=== PATIENT | male | born 1985 | race Caucasian/White ===

== ENCOUNTER 2019-09-16 13:45 | Emergency (ER) | payer MEDICAID ==
[~2019-09-16] VITALS: Ht 190.5 cm; Wt 75.0 kg
[2019-09-16] MEDS ORDERED: ALBU8HFA PO (14:54)
[2019-09-16] MEDS ORDERED: IBUP-1984 PO (14:54)
[2019-09-16 15:13] VITALS: BP 128/84
== END 2019-09-16 15:20 | disposition home or self-care (01) ==
LOC: ER 13:45
DX: R07.81 Pleurodynia (principal); R11.2 Nausea with vomiting, unspecified; F11.20 Opioid dependence, uncomplicated; F17.200 Nicotine dependence, unspecified, uncomplicated; Z60.2 Problems related to living alone; Z72.89 Other problems related to lifestyle; Z79.899 Other long term (current) drug therapy
CPT/HCPCS: 71045; 99284

== ENCOUNTER 2019-09-28 16:10 | Emergency (ER) | payer MEDICAID ==
[~2019-09-28] VITALS: Ht 190.5 cm; Wt 75.0 kg
[~2019-09-28 16:10] MED LIST: ALBU8HFA PO
[2019-09-28 17:14] LABS: BASOPHILS # (AUTO) 0.1 X10'3 (0-0.2); BASOPHILS % (AUTO) 0.6 % (0-1); EOSINOPHILS % (AUTO) 0 % (0-6); HEMOGLOBIN 16.9 g/dl (14.0-17.9); LYMPHOCYTES # (AUTO) 2.1 X10'3 (1.1-4.8); LYMPHOCYTES % (AUTO) 18.2 % (21-51); MEAN CORPUSCULAR HEMOGLOBIN 29.8 PG (27.0-31.0); MEAN CORPUSCULAR HGB CONC 33.7 g/dL (33.0-36.5); MEAN CORPUSCULAR VOLUME 88.5 FL (78-98); MEAN PLATELET VOLUME 8.1 FL (7.4-10.4); MONOCYTES # (AUTO) 0.8 X10'3 (0-0.9); MONOCYTES % (AUTO) 7.1 % (2-12); NEUTROPHILS # (AUTO) 8.6 X10'3 (1.8-7.7); NEUTROPHILS % (AUTO) 74.1 % (42-75); PLATELET COUNT 217 X10'3 (140-440); RED BLOOD COUNT 5.65 X10'6 (4.70-6.10); RED CELL DISTRIBUTION WIDTH 13.6 % (11.5-14.5); WHITE BLOOD COUNT 11.6 X10'3 (4.5-11.0)
--- NOTE | 2019-09-28 17:23 | NUR ---
Pt aware that we need a urine sample when he is able to obtain one. Pt given a urinal.
[2019-09-28 17:25] LABS: ALANINE AMINOTRANSFERASE 271 U/L (12-78); ALBUMIN 3.8 G/DL (3.4-5.0); ALBUMIN/GLOBULIN RATIO 0.9 (1.1-1.5); ALKALINE PHOSPHATASE 201 IU/L (46-116); ANION GAP 16 (8-16); ASPARTATE AMINO TRANSFERASE 175 U/L (10-37); BLOOD UREA NITROGEN 6 MG/DL (7-18); BUN/CREATININE RATIO 7.9 (5.4-32.0); CALCIUM 9.4 MG/DL (8.5-10.1); CHLORIDE 105 MMOL/L (99-107); CREATININE 0.76 MG/DL (0.60-1.10); GLUCOSE 105 MG/DL (70-104); SODIUM 145 MMOL/L (135-145); TOTAL CARBON DIOXIDE 24.2 MMOL/L (24-32); TOTAL PROTEIN 8.1 G/DL (6.4-8.2); eGFR > 90 ML/MIN
[2019-09-28 17:36] LABS: ETHANOL 0.247 GM/DL (0.0-0.010)
[2019-09-28 17:43] LABS: PARTIAL THROMBOPLASTIN TIME 28 SECONDS (22-32)
[2019-09-28 18:18] LABS: CLARITY,URINE SLIGHTLY CLOUDY (Clear); COLOR,URINE YELLOW (Yellow); GLUCOSE, URINE NEGATIVE (Neg); KETONES,URINE 15 mg/dl (Neg); LEUKOCYTE ESTERASE ,URINE NEGATIVE (Neg); NITRITES, URINE NEGATIVE (Neg); OCCULT BLOOD,URINE SMALL (Neg); PROTEIN,URINE 30 mg/dl (Neg)
[2019-09-28 18:20] LABS: UA COLLECTION TYPE URINAL
[2019-09-28 18:31] LABS: URINE AMPHETAMINE SCREEN NEGATIVE (Neg); URINE BARBITUATE SCREEN NEGATIVE (Neg); URINE BENZODIAZEPINES SCREEN NEGATIVE (Neg); URINE CANNABINOID SCREEN POSITIVE (Neg); URINE COCAINE SCREEN NEGATIVE (Neg); URINE METHADONE SCREEN POSITIVE (Neg); URINE OPIATE SCREEN NEGATIVE (Neg); URINE PHENCYCLIDINE SCREEN NEGATIVE (Neg)
[2019-09-28] MEDS ORDERED: WALKERFR (18:48)
--- NOTE | 2019-09-28 18:51 | NUR ---
advised patient to put on his socks so we can perform a kaitlyn test with a walker , pt states " i can't walk, but i will try . "
[2019-09-28 18:55] LABS: BACTERIA,URINE NONE SEEN /HPF (Neg); CAL OXALATE CRYSTALS FEW /HPF (NEGATIVE); MUCUS STRANDS FEW /LPF (Neg); RBC,URINE 0-2 /HPF (0-2); SQUAMOUS EPITHELIAL CELL,UR FEW /LPF (FEW); WBC,URINE NONE SEEN /HPF (0-4)
[2019-09-28] MEDS ORDERED: ketorolac tromethamine 15mg/ml inj. IM ONE (19:00)
[2019-09-28 19:25] VITALS: BP 137/97
== END 2019-09-28 19:25 | disposition home or self-care (01) ==
LOC: ER 16:10
DX: M25.551 Pain in right hip (principal); K59.00 Constipation, unspecified; F19.90 Other psychoactive substance use, unspecified, uncomplicated; Z72.89 Other problems related to lifestyle; Z60.2 Problems related to living alone; Z88.0 Allergy status to penicillin; Z79.899 Other long term (current) drug therapy
CPT/HCPCS: 36415; 71045; 72170; 72192; 80053; 80305; 80320; 81001; 85025; 85610; 85730; 86885; 86900; 86901; 93005; 96372; 99285; J1885